=== PATIENT | male | born 1960 | race Caucasian/White ===

== ENCOUNTER 2018-01-30 13:51 | Emergency (ER) | payer OTHER ==
[2018-01-30] MEDS ORDERED: Dexamethasone 10 MG/ML VIAL ONE (14:25)
[2018-01-30] MEDS ORDERED: Famotidine 20 MG TAB ONE (14:25)
[2018-01-30] MEDS ORDERED: diphenhydrAMINE 25 MG CAP ONE (14:25)
== END 2018-01-30 15:28 | disposition home or self-care (01) ==
LOC: SCSER 13:51
DX: T63.441A Toxic effect of venom of bees, accidental (unintentional), initial encounter (principal); E78.1 Pure hyperglyceridemia; E78.5 Hyperlipidemia, unspecified; K21.9 Gastro-esophageal reflux disease without esophagitis; E11.9 Type 2 diabetes mellitus without complications; Z79.84 Long term (current) use of oral hypoglycemic drugs; Z79.899 Other long term (current) drug therapy; Z79.82 Long term (current) use of aspirin
CPT/HCPCS: 99284; J1100

== ENCOUNTER 2020-02-04 18:20 | Observation (INO) | payer OTHER ==
[2020-02-04] MEDS ORDERED: Nitroglycerin 2% Ointment 1 INCH/1 GM Packet ONE (18:58)
[2020-02-04 19:16] LABS: #Eosinphils 0.1 thou/uL (0.0-0.7); #Lymphocytes 2.2 thou/uL (1.20-3.40); #Monocytes 0.8 thou/uL (0.11-0.59); #Neutrophils 5.2 thou/uL (1.40-6.50); %Basophils 0.4 % (0.0-1.0); %Eosinophils 1.5 % (0.0-10.0); %Lymphocytes 26.2 % (21.0-51.0); Hemoglobin 16.3 g/dL (14.0-18.0); Mean Corpuscular HGB CONC 35.8 g/dL (32.0-36.0); Mean Corpuscular Hemoglobin 30.5 pg (27.0-31.0); Mean Corpuscular Volume 85.1 fL (78.0-98.0); Mean Platelet Volume 9.2 fL (7.4-10.4); Platelet Count 185 thou/uL (130-400); RBC Distribution Width 11.6 % (11.5-14.5); Red Blood Cell (RBC) Count 5.36 mill/uL (4.70-6.10); White Blood Cell (WBC) Count 8.4 thou/uL (4.8-10.8)
[2020-02-04 19:36] LABS: ALT (SGPT) 52 U/L (8-55); AST (SGOT) 31 U/L (5-34); Albumin 4.2 g/dL (3.5-5.0); Alkaline Phosphatase 42 U/L (40-110); BUN (Urea Nitrogen) 19 mg/dL (8.4-25.7); CK (CPK) 196 U/L (30-200); Calc. Creatinine Clearance 0 mL/min (70-130); Calcium 9.8 mg/dL (7.8-10.44); Globulin 2.9 g/dL (2.4-3.5); Glucose 249 mg/dL (70-105); Protein, Total 7.1 g/dL (6.0-8.3)
--- NOTE | 2020-02-04 19:36 | RAD ---
CHEST ONE VIEW PORTABLE: 02/04/20 HISTORY: Substernal chest pain. COMPARISON: 01/03/17. FINDINGS: Heart size is within normal limits. The lungs appear clear. No confluent pneumonia, overt edema, or p leural effusion. IMPRESSION: No significant acute intrathoracic disease. POS: RRE
[2020-02-04 19:45] LABS: Anion Gap 15 mmol/L (10-20); Carbon Dioxide 37 mmol/L (22-29); Chloride 92 mmol/L (98-107); Sodium 141 mmol/L (136-145)
[2020-02-04 19:51] LABS: Potassium 2.5 mmol/L (3.5-5.1)
[2020-02-04] MEDS ORDERED: Potassium Chloride 20 MEQ TAB ONE (20:21)
[2020-02-04 22:15] LABS: Troponin I 0.015 ng/mL (< 0.028)
[2020-02-05 00:13] VITALS: BMI 35.4
[2020-02-05] MEDS ORDERED: Acetaminophen 325 MG TAB PO PRN (01:01)
[2020-02-05] MEDS ORDERED: diphenhydrAMINE 25 MG CAP PO PRN (01:01)
[2020-02-05 01:14] LABS: Troponin I Less than 0.010 ng/mL (< 0.028)
[2020-02-05] MEDS ORDERED: Magnesium 2 GM/50 ML 2 GM in Sodium Chloride 0.9% 100 ML IVPB SCH (01:45)
[2020-02-05] MEDS ORDERED: Potassium Chloride 20 MEQ in Premix Bag 1 BAG IVPB SCH (01:45)
[2020-02-05] MEDS ORDERED: Magnesium 2 GM/50 ML 2 GM in Premix Bag 1 BAG IVPB SCH (02:15)
--- NOTE | 2020-02-05 02:18 | PDOC.HHP ---
Hospitalist HPI - History of Present Illness History of Present Illness: ADMISSION DATE: 02/05/2020 TIME OF ASSESSMENT: 0100 PRIMARY CARE PHYSICIAN: None CHIEF COMPLAINT: Chest pain HPI: This is a 52-year-old gentleman with a history of hypertension, hyperlipidemia, type 2 diabetes mellitus and morbid obesity who presents to the emergency department today with complaints of acute chest pain which started approximately 1:30 PM. States it was in the center of his chest described as a pressure and stabbing which he feels was a 7 out of 10 in terms of severity. Currently the pain is a 3 out of 10 in severity. Patient states that discomfort was nonradiating. He did not have any associated diaphoresis, nausea, vomiting, shortness of breath or dizziness. Denies any cough or hemoptysis. He has been afebrile and without any chills or sweats. All other review of systems are negative. States he has had similar pain in the past over 10 years ago and again 3 years ago at which time he had a stress test. Stress test was done in January 2017 and showed no evidence of ischemia. He was noted to have global hypokinesis with an EF of 49%. He was advised to follow-up with cardiology as an outpatient. Patient denies seeing a gamma operator or primary care physician following discharge. He also had an echo done during that admission which showed an EF of 50 to 55%. Mild MR present otherwise unremarkable. ED COURSE: In the emergency department he had an EKG done which showed normal sinus rhythm with a heart of 74. No ST changes or T wave abnormalities present. He did not receive aspirin because he took his usual dose of aspirin in the morning which was 325 mg. He had laboratory studies done which were notable for a low potassium of 2.5. Magnesium was 1.8. CK 196. BUN 19, creatinine 1.10, GFR 69. Glucose was 249. LFTs normal. Troponin negative x2. CBC unremarkable. Chest x-ray showed no significant acute intrathoracic disease. He was given Nitro-Bid 1 inch and received 40 mEq of potassium chloride p.o. PAST MEDICAL HISTORY: 1. Hyperlipidemia 2. Type 2 diabetes mellitus 3. Hypertension 4. GERD 5. Depression 6. Obesity 7. Sleep apnea uses CPAP PAST SURGICAL HISTORY: 1. Right hand surgery SOCIAL HISTORY: Patient reports rare alcohol consumption. Denies any tobacco use or drug use. He is fully independent at baseline. FAMILY HISTORY: Noncontributory ALLERGIES: 1. Novocain 2. Procaine CURRENT MEDICATIONS: 1. Aspirin 325 mg p.o. daily 2. Lisinopril/HCTZ space 20/25 mg p.o. twice daily 3. Rosuvastatin 10 mg p.o. daily 4. Glimepiride 1 mg p.o. twice daily 5. Metoprolol succinate 25 mg p.o. twice daily 6. Amlodipine 2.5 mg p.o. daily 7. Nasacort 55 mcg 2 sprays once daily Hospitalist ROS - Medication Medications: Active Medications Generic Name Dose Route Start Last Admin Trade Name Freq PRN Reason Stop Dose Admin Acetaminophen 650 mg 02/05/20 01:01 02/05/20 02:12 Acetaminophen 325 Mg Tab PO 650 mg Q4H PRN Administration Headache/Fever or Pain Diphenhydramine HCl 25 mg 02/05/20 01:01 02/05/20 02:12 Diphenhydramine 25 Mg Cap PO 25 mg HS PRN Administration Congestion Potassium Chloride 20 meq/ 100 mls @ 50 mls/hr 02/05/20 01:45 02/05/20 02:13 Device IVPB 02/05/20 03:00 100 mls NOW MAG Administration Magnesium Sulfate 2 gm/ Device 50 mls @ 50 mls/hr 02/05/20 02:15 02/05/20 02:17 IVPB 02/05/20 03:30 50 mls NOW MAG Administration - Exam General Appearance: NAD, awake alert General - other findings: VS: Temp 97.7, HR 78, RR 18, O2 sat 95% on room air, BP 118/69. Eye: PERRL ENT: normocephalic atraumatic, no oropharyngeal lesions ENT - other findings: CPAP in place Neck: supple, no lymphadenopathy Heart: RRR, no murmur, no rubs, normal peripheral pulses Respiratory: CTAB, no wheezes, no rales, no ronchi, normal chest expansion Gastrointestinal: soft, non-tender, non-distended, normal bowel sounds Extremities: no edema Skin: normal turgor, no lesions, no rashes Neurological: cranial nerve grossly intact, normal sensation to touch Musculoskeletal: normal tone, normal strength, no muscle wasting Psychiatric: normal affect, normal behavior, A&O x 3 Hospitalist Results - Labs Result Diagrams: 02/04/20 19:03 02/04/20 19:03 Lab results: WBC 8.4 thou/uL (4.8-10.8) 02/04/20 19:03 Hgb 16.3 g/dL (14.0-18.0) 02/04/20 19:03 Hct 45.6 % (42.0-52.0) 02/04/20 19:03 MCV 85.1 fL (78.0-98.0) 02/04/20 19:03 Plt Count 185 thou/uL (130-400) 02/04/20 19:03 Neutrophils % 62.0 % (42.0-75.0) 02/04/20 19:03 Sodium 141 mmol/L (136-145) 02/04/20 19:03 Potassium 2.5 mmol/L (3.5-5.1) L* 02/04/20 19:03 Chloride 92 mmol/L (98-107) L 02/04/20 19:03 Carbon Dioxide 37 mmol/L (22-29) H 02/04/20 19:03 BUN 19 mg/dL (8.4-25.7) 02/04/20 19:03 Creatinine 1.10 mg/dL (0.7-1.3) 02/04/20 19:03 Glucose 249 mg/dL (70-105) H 02/04/20 19:03 Calcium 9.8 mg/dL (7.8-10.44) 02/04/20 19:03 Total Bilirubin 1.0 mg/dL (0.2-1.2) 02/04/20 19:03 AST 31 U/L (5-34) 02/04/20 19:03 ALT 52 U/L (8-55) 02/04/20 19:03 Alkaline Phosphatase 42 U/L (40-110) 02/04/20 19:03 Creatine Kinase 196 U/L (30-200) 02/04/20 19:03 Troponin I Less than 0.010 ng/mL (< 0.028) 02/05/20 00:26 Serum Total Protein 7.1 g/dL (6.0-8.3) 02/04/20 19:03 Albumin 4.2 g/dL (3.5-5.0) 02/04/20 19:03 - Radiology Interpretation Chest x-ray Status: report reviewed by me Hospitalist H&P A/P - Problem (1) Chest pain Code(s): R07.9 - CHEST PAIN, UNSPECIFIED Status: Acute Assessment and Plan: Continue cardiac monitoring Resume ASA and statin Continue to trend troponin Keep NPO Cardiology consult in AM Hold stress test, per patient request Check lipid panel with AM labs Check Mg+, BNP and TSH (2) Hypokalemia Code(s): E87.6 - HYPOKALEMIA Status: Acute Assessment and Plan: Replace potassium Repeat electrolytes including Mg + with AM labs Mg replacement given as well for Mg of 1.8 Monitor and replace as needed (3) Obesity Code(s): E66.9 - OBESITY, UNSPECIFIED Status: Chronic (4) Sleep apnea Code(s): G47.30 - SLEEP APNEA, UNSPECIFIED Status: Chronic Assessment and Plan: CPAP HS (5) Diabetes mellitus Code(s): E11.9 - TYPE 2 DIABETES MELLITUS WITHOUT COMPLICATIONS Status: Chronic Assessment and Plan: Accuchecks ACHS ISS initiated (6) HTN (hypertension) Code(s): I10 - ESSENTIAL (PRIMARY) HYPERTENSION Status: Acute (7) Hyperlipidemia Code(s): E78.5 - HYPERLIPIDEMIA, UNSPECIFIED Status: Chronic Assessment and Plan: Resume statin Check lipid panel with AM labs - Plan Plan: GI Prophylaxis with Famotidine DVT Prophylaxis with mechanical SCDs. (Patient ambulatory) CODE STATUS FULL Case discussed with attending who agrees with plan as above.
[2020-02-05] MEDS ORDERED: Nitroglycerin 0.4 MG TAB (25 Tab Bottle) SL PRN (02:21)
[2020-02-05] MEDS ORDERED: Dextrose 50% Abboject 50 ML SYRINGE SLOW IVP PRN ×2 (02:21→15:34)
[2020-02-05] MEDS ORDERED: Dextrose 5% in Water 1,000 ML IV PRN ×2 (02:21→15:34)
[2020-02-05] MEDS ORDERED: HumaLOG 300 UNITS/3 ML VIAL SC PRN ×2 (02:21)
[2020-02-05] MEDS ORDERED: Aspirin 325 MG TAB PO SCH (02:45)
[2020-02-05] MEDS ORDERED: Potassium Chloride 20 MEQ TAB PO SCH ×4 (03:00→15:45)
[2020-02-05 04:21] LABS: #Basophils 0.1 thou/uL (0.0-0.2); #Eosinphils 0.2 thou/uL (0.0-0.7); #Monocytes 0.7 thou/uL (0.11-0.59); #Neutrophils 3.8 thou/uL (1.40-6.50); %Basophils 0.8 % (0.0-1.0); %Eosinophils 2.6 % (0.0-10.0); %Lymphocytes 29.7 % (21.0-51.0); %Monocytes 10.2 % (0.0-10.0); %Neutrophils 56.7 % (42.0-75.0); Hemoglobin 14.8 g/dL (14.0-18.0); Mean Corpuscular HGB CONC 35.7 g/dL (32.0-36.0); Mean Corpuscular Hemoglobin 30.5 pg (27.0-31.0); Mean Corpuscular Volume 85.3 fL (78.0-98.0); Mean Platelet Volume 9.1 fL (7.4-10.4); Platelet Count 167 thou/uL (130-400); RBC Distribution Width 11.5 % (11.5-14.5); Red Blood Cell (RBC) Count 4.87 mill/uL (4.70-6.10); White Blood Cell (WBC) Count 6.7 thou/uL (4.8-10.8)
[2020-02-05 04:48] LABS: Anion Gap 14 mmol/L (10-20); BUN (Urea Nitrogen) 20 mg/dL (8.4-25.7); Calc. Creatinine Clearance 128 mL/min (70-130); Calcium 9.1 mg/dL (7.8-10.44); Carbon Dioxide 35 mmol/L (22-29); Chloride 94 mmol/L (98-107); Glucose 353 mg/dL (70-105); Magnesium 2.2 mg/dL (1.6-2.6); Sodium 140 mmol/L (136-145)
[2020-02-05 04:51] LABS: Potassium 2.5 mmol/L (3.5-5.1)
[2020-02-05 06:42] LABS: SARS-CoV-2 MS2 Positive; SARS-CoV-2 N Gene Negative; SARS-CoV-2 S Gene Negative; SARS-CoV-2 by NAA Not Detected (NotDetected); SARS-CoV-2 orf1ab Negative
[2020-02-05] MEDS: Famotidine 20 MG TAB PO SCH ×2 (08:53→20:39)
[2020-02-05] MEDS: Aspirin 325 mg Enteric Coated Tablet PO SCH (08:53)
[2020-02-05] MEDS ORDERED: FLU VACC QS2020-21(6MOS UP)/PF 60 MCG/0.5 ML SYRINGE IM ONE (09:00)
--- NOTE | 2020-02-05 12:36 | CON ---
DATE OF CONSULTATION: HISTORY OF PRESENT ILLNESS: The patient is a 60-year-old gentleman who presents with chest discomfort. The patient was seen initially in 2014 with chest pain. He underwent a Cardiolite stress test and was found to have normal left ventricular ejection fraction of 49% with no evidence of ischemia. The patient underwent an echocardiogram which revealed normal left ventricular ejection fraction of 50% to 55%. The patient has had no further chest discomfort until the day of admission. The patient states that he developed midsternal chest discomfort. It did not radiate. It was not associated with shortness of breath or diaphoresis. The patient states it lasted for approximately three hours. He came to the emergency room and he still reports feeling some discomfort along his sternum. The patient denies having any PND or orthopnea. PAST MEDICAL HISTORY: 1. Diabetes mellitus. 2. Hypertension. 3. Dyslipidemia. PAST SURGICAL HISTORY: SOCIAL HISTORY: Nonsmoker. FAMILY HISTORY: He is adopted. ALLERGIES: PROCAINE. REVIEW OF SYSTEMS: Ten-point system otherwise unremarkable. PHYSICAL EXAMINATION: GENERAL: This is an obese gentleman, in no acute distress. VITAL SIGNS: Blood pressure 122/79. NECK: No jugular venous distention. LUNGS: Clear to auscultation. HEART: Regular rate and rhythm. Normal S1, S2. No murmurs. ABDOMEN: Distended. EXTREMITIES: Showed no edema. VASCULAR: Radial pulses are 2+. LABORATORY RESULTS: White blood cell count 6.7, hemoglobin 14.8, hematocrit 41.5, and platelets 167. Sodium is 140, potassium is 2.5, chloride 94, bicarbonate 35, BUN 20, creatinine 1.15, and glucose is 353. Troponin level was less than 0.01. BNP less than 10. EKG Normal sinus rhythm with a normal ECG. IMPRESSION: 1. Chest pain. 2. Hypertension. 3. Dyslipidemia. 4. Morbid obesity. 5. Hypokalemia. This gentleman presents with chest pain. The patient should not be on any type of diuretic with his low potassium. From a cardiac standpoint, his EKG is unremarkable. Cardiac enzymes revealed no evidence of myocardial infarction. We will proceed with stress testing for further evaluation. Job ID: [id number] MTDD
--- NOTE | 2020-02-05 12:44 | PDOC.HOSPP ---
- Subjective Encounter Date: 02/05/20 Encounter Time: 09:50 Subjective: Patient denies any chest pain however has some chest soreness. Tropes x2 -. TSH in the normal range. Glucose is quite high. - Objective Vital Signs & Weight: Vital Signs (12 hours) Temp Pulse Resp BP BP Pulse Ox 02/05/20 11:56 97.3 F L 73 16 144/80 H 02/05/20 08:02 97 02/05/20 08:00 97.4 F L 85 16 122/79 95 02/05/20 03:14 97.5 F L 69 16 115/60 97 02/05/20 02:22 96 Weight Weight 284 lb I&O: 02/04/20 02/05/20 02/06/20 06:59 06:59 06:59 Intake Total 360 Balance 360 Result Diagrams: 02/05/20 03:53 02/05/20 03:53 Additional Labs: Accuchecks 02/05/20 02/05/20 10:43 05:30 POC Glucose 277 H 308 H Hospitalist ROS - Medication Medications: Active Medications Generic Name Dose Route Start Last Admin Trade Name Freq PRN Reason Stop Dose Admin Acetaminophen 650 mg 02/05/20 01:01 02/05/20 02:12 Acetaminophen 325 Mg Tab PO 650 mg Q4H PRN Administration Headache/Fever or Pain Aspirin 325 mg 02/05/20 09:00 02/05/20 08:53 Aspirin 325 Mg Enteric Coated Tablet PO 325 mg DAILY MAG Administration Diphenhydramine HCl 25 mg 02/05/20 01:01 02/05/20 02:12 Diphenhydramine 25 Mg Cap PO 25 mg HS PRN Administration Congestion Famotidine 20 mg 02/05/20 09:00 02/05/20 08:53 Famotidine 20 Mg Tab PO 20 mg BID MAG Administration Insulin Human Lispro 0 units 02/05/20 02:21 02/05/20 05:33 Humalog 300 Units/3 Ml Vial SC 5 unit .MILD SLIDING SCALE PRN Administration Mild Correctional Scale Potassium Chloride 40 meq 02/05/20 10:15 02/05/20 10:59 Potassium Chloride 20 Meq Tab PO 02/05/20 14:00 40 meq NOW MAG Administration Sodium Chloride 10 ml 02/05/20 02:18 02/05/20 08:54 Flush - Normal Saline 10 Ml Syringe IVF 10 ml Q12HR PRN Administration Saline Flush - Exam General Appearance: NAD, awake alert Eye: PERRL, anicteric sclera ENT: normocephalic atraumatic Neck: supple Heart: RRR Respiratory: CTAB Gastrointestinal: soft, normal bowel sounds Neurological: no new deficit Psychiatric: A&O x 3 Hosp A/P - Plan Code(s): R07.9 - CHEST PAIN, UNSPECIFIED Status: Acute -Tropes negative TSH normal range. We will get the fasting lipid panel. - On aspirin nitroglycerin as needed. Continue with the fenofibrate Crestor as well as Toprol. -Stress test scheduled for tomorrow. Appreciate the cardiology input. (2) Hypokalemia Code(s): E87.6 - HYPOKALEMIA Status: Acute -Avoid the diuretics free. Patient is on lisinopril as well as hydrochlorothiazide. Assessment and Plan: Replace potassium Repeat electrolytes including Mg + with AM labs Mg replacement given as well for Mg of 1.8 (3) Obesity Code(s): E66.9 - OBESITY, UNSPECIFIED Status: Chronic (4) Sleep apnea Code(s): G47.30 - SLEEP APNEA, UNSPECIFIED Status: Chronic Assessment and Plan: CPAP HS (5) Diabetes mellitus Code(s): E11.9 - TYPE 2 DIABETES MELLITUS WITHOUT COMPLICATIONS Status: Chronic Assessment and Plan: Accucheckkathleen STOCK ISS initiated Patient on glimepiride which we will continue (6) HTN (hypertension) Code(s): I10 - ESSENTIAL (PRIMARY) HYPERTENSION Status: Acute (7) Hyperlipidemia Code(s): E78.5 - HYPERLIPIDEMIA, UNSPECIFIED Status: Chronic Assessment and Plan: Resume statin Check lipid panel with AM labs
[2020-02-05 15:20] LABS: Critical Call Chemistry 2NO.EMM; Potassium 2.9 mmol/L (3.5-5.1)
[2020-02-05] MEDS: Glimepiride 4 MG TAB PO SCH ×2 (17:03→17:10)
[2020-02-05] MEDS: HumaLOG 300 UNITS/3 ML VIAL SC SCH ×2 (17:13→20:45)
[2020-02-05] MEDS ORDERED: Glimepiride 1 MG TAB PO SCH (19:15)
[2020-02-05] MEDS ORDERED: Glimepiride 4 MG TAB PO SCH (19:30)
[2020-02-05] MEDS ORDERED: Rosuvastatin 20 MG TAB PO SCH (21:00)
[2020-02-05] MEDS ORDERED: Fluticasone Propionate Nasal Spray 16 gm Bottle NASAL SCH (21:00)
[2020-02-05] MEDS ORDERED: Fenofibrate Nanocrystallized 145 MG TAB PO SCH (21:00)
[2020-02-05] MEDS ORDERED: Amlodipine 5 MG TAB PO SCH (21:00)
[2020-02-05] MEDS: Lisinopril/Hydrochlorothiazide 20/25 mg Tablet PO SCH (21:27)
[2020-02-06 04:50] LABS: Cardiac Risk 4.5 (Less than 4.5)
[2020-02-06] MEDS: HumaLOG 300 UNITS/3 ML VIAL SC SCH ×2 (05:49→12:45)
[2020-02-06] MEDS ORDERED: Glimepiride 4 MG TAB PO SCH (07:30)
[2020-02-06] MEDS ORDERED: Fenofibrate Nanocrystallized 145 MG TAB PO SCH (09:00)
[2020-02-06] MEDS ORDERED: Multivit, Therapeutic 1 TAB PO SCH (09:00)
[2020-02-06] MEDS: Lisinopril/Hydrochlorothiazide 20/25 mg Tablet PO SCH (09:29)
[2020-02-06] MEDS: Aspirin 325 mg Enteric Coated Tablet PO SCH (09:29)
[2020-02-06] MEDS: Famotidine 20 MG TAB PO SCH (09:29)
[2020-02-06 11:14] LABS: Anion Gap 17 mmol/L (10-20); BUN (Urea Nitrogen) 11 mg/dL (8.4-25.7); Calc. Creatinine Clearance 135 mL/min (70-130); Calcium 8.6 mg/dL (7.8-10.44); Carbon Dioxide 24 mmol/L (22-29); Chloride 101 mmol/L (98-107); Glucose 304 mg/dL (70-105); Potassium 4.6 mmol/L (3.5-5.1); Sodium 137 mmol/L (136-145)
--- NOTE | 2020-02-06 12:46 | NM ---
MYOCARDIAL PERFUSION SCAN: INDICATION: Chest pain. TECHNIQUE: The patient was given 27 mCi of sestamibi for rest exam and 29 mCi for rest exam. The patient was st ressed according to Lorenzo protocol. The left ventricle was imaged with SPECT imaging. CT attenuation. FINDINGS: Normal activity throughout the left ventricle on stress and rest images. No evidence of reversible i schemia. Wall motion appears normal. Ejection fraction recorded at 52%. IMPRESSION: No evidence of reversible ischemia. POS: AGW
--- NOTE | 2020-02-06 13:28 | PDOC.HOSPP ---
- Subjective Encounter Date: 02/06/20 Encounter Time: 10:30 Subjective: Patient returned from the stress test. It appears he is completed. - Objective Vital Signs & Weight: Vital Signs (12 hours) Temp Pulse Resp BP BP BP Pulse Ox 02/06/20 12:00 97.4 F L 80 16 164/87 H 02/06/20 09:29 77 132/89 02/06/20 08:00 97.1 F L 78 18 132/89 97 02/06/20 07:49 96 02/06/20 04:53 96 02/06/20 03:19 97.8 F 73 16 133/80 96 Weight Weight 277 lb 14.4 oz I&O: 02/05/20 02/06/20 02/07/20 06:59 06:59 06:59 Intake Total 360 990 Balance 360 990 Result Diagrams: 02/05/20 03:53 02/06/20 10:38 Additional Labs: Accuchecks 02/06/20 02/06/20 02/05/20 12:16 05:32 20:35 POC Glucose 278 H 181 H 305 H 02/05/20 17:11 POC Glucose 286 H Hospitalist ROS - Medication Medications: Active Medications Generic Name Dose Route Start Last Admin Trade Name Freq PRN Reason Stop Dose Admin Acetaminophen 650 mg 02/05/20 01:01 02/05/20 02:12 Acetaminophen 325 Mg Tab PO 650 mg Q4H PRN Administration Headache/Fever or Pain Amlodipine Besylate 2.5 mg 02/05/20 21:00 02/05/20 20:39 Amlodipine 5 Mg Tab PO 2.5 mg HS MAG Administration Aspirin 325 mg 02/05/20 09:00 02/06/20 09:29 Aspirin 325 Mg Enteric Coated Tablet PO 325 mg DAILY MAG Administration Diphenhydramine HCl 25 mg 02/05/20 01:01 02/05/20 02:12 Diphenhydramine 25 Mg Cap PO 25 mg HS PRN Administration Congestion Famotidine 20 mg 02/05/20 09:00 02/06/20 09:29 Famotidine 20 Mg Tab PO 20 mg BID MAG Administration Fenofibrate 145 mg 02/05/20 21:00 02/05/20 21:27 Fenofibrate Nanocrystallized 145 Mg Tab PO 145 mg HS MAG Administration Glimepiride 4 mg 02/06/20 07:30 12/06/20 09:29 Glimepiride 4 Mg Tab PO 4 mg BID-AC MAG Administration Lisinopril/HCTZ 1 tab 02/05/20 21:00 02/06/20 09:29 Lisinopril/Hydrochlorothiazide 20/25 Mg Tablet PO 1 tab BID MAG Administration Insulin Human Lispro 0 units 02/05/20 15:45 02/06/20 12:45 Humalog 300 Units/3 Ml Vial SC 9 unit .AGGRESSIVE SLIDING MAG Administration Metoprolol Succinate 25 mg 02/05/20 21:00 02/06/20 09:29 Metoprolol Succinate Xl 25 Mg Tab PO 25 mg BID MAG Administration Multivitamins 1 tab 02/06/20 09:00 02/06/20 09:29 Multivit, Therapeutic 1 Tab PO 1 tab DAILY MAG Administration Rosuvastatin Calcium 10 mg 02/05/20 21:00 02/05/20 20:38 Rosuvastatin 20 Mg Tab PO 10 mg HS MAG Administration Sodium Chloride 10 ml 02/05/20 02:18 02/06/20 09:30 Flush - Normal Saline 10 Ml Syringe IVF 10 ml Q12HR PRN Administration Saline Flush Hosp A/P - Plan Code(s): R07.9 - CHEST PAIN, UNSPECIFIED Status: Acute -Tropes negative TSH normal range. We will get the fasting lipid panel. - On aspirin nitroglycerin as needed. Continue with the fenofibrate Crestor as well as Toprol. -Stress test scheduled for tomorrow. Appreciate the cardiology input. (2) Hypokalemia Code(s): E87.6 - HYPOKALEMIA Status: Acute -Avoid the diuretics free. Patient is on lisinopril as well as hydrochlorothiazide. Assessment and Plan: Replace potassium Repeat electrolytes including Mg + with AM labs Mg replacement given as well for Mg of 1.8 (3) Obesity Code(s): E66.9 - OBESITY, UNSPECIFIED Status: Chronic (4) Sleep apnea Code(s): G47.30 - SLEEP APNEA, UNSPECIFIED Status: Chronic Assessment and Plan: CPAP HS (5) Diabetes mellitus Code(s): E11.9 - TYPE 2 DIABETES MELLITUS WITHOUT COMPLICATIONS Status: Chronic Assessment and Plan: Accuchecks ACHS ISS initiated Patient on glimepiride which we will continue (6) HTN (hypertension) Code(s): I10 - ESSENTIAL (PRIMARY) HYPERTENSION Status: Acute (7) Hyperlipidemia Code(s): E78.5 - HYPERLIPIDEMIA, UNSPECIFIED Status: Chronic Assessment and Plan: Resume statin Check lipid panel with AM labs Pending stress test result if normal/negative possible discharge later this evening after cardiology clearance.
--- NOTE | 2020-02-06 14:52 | PDOC.DS.DS ---
Provider - Provider Date of Admission: 02/04/20 21:15 Admitting Provider: Chaparro Mariee DO Primary Care Physician: Unknown Course - Hospital Course Hospital Course: 40-year-old obese male presented with chest pain -Tropes negative TSH normal range. - On aspirin nitroglycerin as needed. Continue with the fenofibrate Crestor as well as Toprol. -Stress test negative for ischemia (2) Hypokalemia Code(s): E87.6 - HYPOKALEMIA Status: Acute -Avoid the diuretics free. Patient is on lisinopril as well as hydrochlorothiazide. -Discontinued hydrochlorothiazide and lisinopril dose increased and he needs repeat BMP panel in 1 week when he follows with primary care physician. Instructions given for the same. (3) Obesity Code(s): E66.9 - OBESITY, UNSPECIFIED Status: Chronic (4) Sleep apnea Code(s): G47.30 - SLEEP APNEA, UNSPECIFIED Status: Chronic Assessment and Plan: CPAP HS (5) Diabetes mellitus C Patient on glimepiride and needs more titration of his medications as outpatient (6) HTN (hypertension) Code(s): I10 - ESSENTIAL (PRIMARY) HYPERTENSION Status: Acute (7) Hyperlipidemia His triglyceride is 302 and the LDL is 46. He would benefit with the Vascepa which is prescribed for his hypertri glyceridemia, per cardiology recommendation in addition to being on Crestor. Repeat chemistry panel in 1 week as his lisinopril dose increased hydrochlorothiazide discontinued he had a significant hypokalemia at 2.5 on presentation and his potassium is normalized above 4 prior to discharge. Currently he does not need potassium supplementation until repeat labs reviewed. Cleared by cardiology. Follow-up with Dr. Goldstein in the clinic as needed. Follow with primary care physician in 1 week as he needs a repeat chemistry bus driver/monitor his potassium and creatinine. Charge time over 30 minutes Resuscitation Status: 02/05/20 02:18 Resuscitation Status Routine Co-Sign Provider: Resuscitation Status: FULL: Full Resuscitation - Labs Lab Results: 02/05/20 03:53 02/06/20 10:38 Abnormal Lab Results - Last 48 hrs 02/04/20 19:03: Potassium 2.5 L*, Chloride 92 L, Carbon Dioxide 37 H 02/04/20 19:03: Monocytes # 0.8 H 02/05/20 03:53: Potassium 2.5 L*, Chloride 94 L, Carbon Dioxide 35 H 02/05/20 03:53: Hct 41.5 L, Monocytes % 10.2 H, Monocytes # 0.7 H 02/05/20 14:39: Potassium 2.9 L* 02/06/20 03:58: Triglycerides 302 H - Physical Exam Vitals: Vital Signs (12 hours) Temp Pulse Resp BP BP BP Pulse Ox 02/06/20 12:00 97.4 F L 80 16 164/87 H 02/06/20 09:29 77 132/89 02/06/20 08:00 97.1 F L 78 18 132/89 97 02/06/20 07:49 96 02/06/20 04:53 96 02/06/20 03:19 97.8 F 73 16 133/80 96 Weight Weight 277 lb 14.4 oz Physical Exam: The patient was seen and examined on the day of discharge. Plan - Discharge Medications Prescriptions: Lisinopril [Prinivil] 40 mg PO DAILY 30 Days #30 tablet Icosapent Ethyl [Vascepa] 2 gm PO BID 30 Days #60 capsule Home Medications: Medication Instructions Recorded Confirmed Type Rosuvastatin [Crestor] 10 mg PO HS 01/03/17 02/04/20 History Amlodipine Besylate [amLODIPine 2.5 mg PO HS 02/04/20 02/04/20 History Besylate] Aspirin 325 mg PO DAILY 02/04/20 02/04/20 History Metoprolol Succinate [Toprol XL] 25 mg PO BID 02/04/20 02/04/20 History Multivitamin 1 each PO DAILY 02/04/20 02/04/20 History Triamcinolone Acetonide [Nasacort 2 spray EA NARE HS 02/04/20 02/04/20 History Allergy 24 HR] diphenhydrAMINE [Benadryl] 25 mg PO HS PRN 02/05/20 02/05/20 History Icosapent Ethyl [Vascepa] 2 gm PO BID 30 Days #60 capsule 02/06/20 Rx Lisinopril [Prinivil] 40 mg PO DAILY 30 Days #30 tablet 02/06/20 Rx Allergies: procaine [From Novocain] Allergy (Verified 02/04/20 23:52) HAPPENED 46 YEARS AGO. CAN'T REMEMBER WHAT HAPPNED - Discharge Instructions Discharge Instructions:: PCP in 1 week Repeat chemistry panel in 1 week as his lisinopril dose increased hydrochlorothiazide discontinued he had a hypokalemia on presentation and his potassium is normalized above 4 p rior to discharge. Currently he does not need potassium supplementation until repeat labs reviewed. Activity:: Activity as Tolerated Nourishment:: Heart Healthy Diet - Follow up Plan Referrals: Unknown,Unknown [Primary Care Provider] - Disposition: HOME Quality - Care Measures CORE MEASURES:: N/A
[2020-02-06 15:14] VITALS: BP 161/93; TEMP 99
[2020-02-06] MEDS ORDERED: Icosapent Ethyl 1 GM CAPSULE PO SCH (21:00)
== END 2020-02-06 17:06 | disposition home or self-care (01) ==
LOC: ERS 18:20 → 2NO 21:15
PROVIDERS: ADMIT Family Medicine; ATTEND Family Medicine
DX: R07.89 Other chest pain (principal); E87.6 Hypokalemia; G47.30 Sleep apnea, unspecified; E11.9 Type 2 diabetes mellitus without complications; I10 Essential (primary) hypertension; E78.5 Hyperlipidemia, unspecified; F32.9 Major depressive disorder, single episode, unspecified; K21.9 Gastro-esophageal reflux disease without esophagitis; E66.01 Morbid (severe) obesity due to excess calories; Z68.34 Body mass index [BMI] 34.0-34.9, adult; Z79.82 Long term (current) use of aspirin; Z79.84 Long term (current) use of oral hypoglycemic drugs; Z79.899 Other long term (current) drug therapy; Z88.4 Allergy status to anesthetic agent; Z20.828 Contact with and (suspected) exposure to other viral communicable diseases
CPT/HCPCS: 36415; 36416; 71045; 78452; 80048; 80053; 80061; 82550; 83735; 83880; 84443; 84484; 85025; 87635; 90471; 90662; 90732; 93005; 93017; 94760; 96374; A9500; G0008; G0009; G0378; J3475; J3480; Q0163; U0003

== ENCOUNTER 2022-01-15 11:01 | Emergency (ER) | payer BC ==
[2022-01-15 13:22] LABS: #Eosinphils 0.2 thou/uL (0.0-0.7); #Lymphocytes 1.8 thou/uL (1.20-3.40); #Monocytes 0.7 thou/uL (0.11-0.59); #Neutrophils 4.5 thou/uL (1.40-6.50); %Basophils 0.4 % (0.0-1.0); %Eosinophils 3.3 % (0.0-10.0); %Lymphocytes 24.9 % (21.0-51.0); %Monocytes 10.1 % (0.0-10.0); %Neutrophils 61.3 % (42.0-75.0); Hemoglobin 15.9 g/dL (14.0-18.0); Mean Corpuscular HGB CONC 35.1 g/dL (32.0-36.0); Mean Corpuscular Hemoglobin 30.8 pg (27.0-31.0); Mean Corpuscular Volume 87.5 fl (78.0-98.0); Mean Platelet Volume 8.7 fL (7.4-10.4); Platelet Count 175 10x3/uL (130-400); RBC Distribution Width 12.1 % (11.5-14.5); Red Blood Cell (RBC) Count 5.17 mill/uL (4.70-6.10); White Blood Cell (WBC) Count 7.3 10x3/uL (4.8-10.8)
[2022-01-15 13:49] LABS: ALT (SGPT) 31 U/L (8-55); AST (SGOT) 25 U/L (5-34); Albumin 4.2 g/dL (3.5-5.0); Alkaline Phosphatase 49 U/L (40-110); Anion Gap 13 mmol/L (10-20); BUN (Urea Nitrogen) 13 mg/dL (8.4-25.7); Bilirubin, Total 0.9 mg/dL (0.2-1.2); Calc. Creatinine Clearance 0 mL/min (70-130); Calcium 9.5 mg/dL (7.8-10.44); Carbon Dioxide 29 mmol/L (22-29); Chloride 102 mmol/L (98-107); Estimated GFR 99; Globulin 3.1 g/dL (2.4-3.5); Glucose 173 mg/dL (70-105); Lipase 10 U/L (8-78); Potassium 2.9 mmol/L (3.5-5.1); Protein, Total 7.3 g/dL (6.0-8.3); Sodium 141 mmol/L (136-145)
== END 2022-01-15 14:45 | disposition home or self-care (01) ==
LOC: ERS 11:01
DX: M54.6 Pain in thoracic spine (principal); E78.2 Mixed hyperlipidemia; E11.9 Type 2 diabetes mellitus without complications; I10 Essential (primary) hypertension; K21.9 Gastro-esophageal reflux disease without esophagitis; Z79.899 Other long term (current) drug therapy
CPT/HCPCS: 36415; 71045; 80053; 83690; 84484; 85025; 93005; 94760

== ENCOUNTER 2022-04-14 17:00 | Outpatient (CLI) | payer BC | END 2022-04-14 17:01 | disposition home or self-care (01) | LOC: SLEEPLAB 17:00 | PROVIDERS: ATTEND Family Medicine | DX: G47.33 Obstructive sleep apnea (adult) (pediatric) (principal); G47.10 Hypersomnia, unspecified; R53.83 Other fatigue; E66.9 Obesity, unspecified; R06.83 Snoring; Z68.36 Body mass index [BMI] 36.0-36.9, adult | CPT/HCPCS: 95811 ==

== ENCOUNTER 2023-05-19 | Outpatient (CLI) | payer BC | END 2023-05-19 07:51 | disposition home or self-care (01) | DX: I12.9 Hypertensive chronic kidney disease with stage 1 through stage 4 chronic kidney disease, or unspecified chronic kidney disease (principal); N18.2 Chronic kidney disease, stage 2 (mild) ==

== ENCOUNTER 2023-08-26 07:02 | Day surgery (SDC) | payer BC ==
[2023-08-25 13:47] VITALS: BMI 39.2
[2023-08-26] MEDS ORDERED: Bupivacaine PF 0.5% 30 ML VIAL ONE (09:30)
[2023-08-26] MEDS ORDERED: EPINEPHrine 1 MG/ML VIAL ONE (09:30)
[2023-08-26] MEDS ORDERED: Vancomycin 1 GM VIAL ONE (09:30)
[2023-08-26] MEDS ORDERED: Thrombin 5000 UNITS/5 ML VIAL ONE (09:30)
[2023-08-26] MEDS ORDERED: CEFAZOLIN 2 GM VIAL ONE (09:47)
[2023-08-26] MEDS ORDERED: Sodium Chloride 0.9% 100 ML ONE (09:47)
[2023-08-26] MEDS ORDERED: Fentanyl 250 MCG/5 ML VIAL ONE (09:48)
[2023-08-26] MEDS ORDERED: Lidocaine 1% PF 5 ML VIAL ONE (09:48)
[2023-08-26] MEDS ORDERED: PROPOFOL 20 ML ONE ×2 (09:48→10:10)
[2023-08-26] MEDS ORDERED: Rocuronium Bromide 10 MG/ML (10ML VIAL) ONE ×2 (09:48→11:59)
[2023-08-26 10:00] LABS: Anion Gap 16 mmol/L (10-20); BUN (Urea Nitrogen) 15 mg/dL (8.4-25.7); Calc. Creatinine Clearance 176 mL/min (70-130); Calcium 8.7 mg/dL (7.8-10.44); Carbon Dioxide 22 mmol/L (23-31); Estimated GFR 96; Glucose 110 mg/dL (80-115); Potassium 3.6 mmol/L (3.5-5.1)
[2023-08-26 10:03] LABS: Chloride 109 mmol/L (98-107); Sodium 143 mmol/L (136-145)
[2023-08-26] MEDS ORDERED: Acetaminophen 325 MG TAB PO PRN (10:12)
[2023-08-26] MEDS ORDERED: Ondansetron PF 4 MG/2 ML Vial IVP PRN (10:12)
[2023-08-26] MEDS ORDERED: HYDROcodone/Acetaminophen 7.5/325 mg Tablet PO PRN (10:12)
[2023-08-26] MEDS ORDERED: Acetaminophen/Codeine 30-300mg Tablet PO PRN (10:12)
[2023-08-26] MEDS ORDERED: Bisacodyl 10 MG SUPP PR PRN (10:12)
[2023-08-26] MEDS ORDERED: Mag-Al 1200 mg/1200 mg/30 ML UDCUP PO PRN (10:12)
[2023-08-26] MEDS ORDERED: HYDROcodone/Acetaminophen 10/325 mg Tablet PO PRN (10:12)
[2023-08-26] MEDS ORDERED: Morphine 2 MG/ML VIAL SLOW IVP PRN (10:12)
[2023-08-26] MEDS ORDERED: tiZANidine HCl 4 MG TAB PO PRN (10:14)
[2023-08-26] MEDS ORDERED: Sodium Chloride 0.9% 1,000 ML IV SCH (10:15)
[2023-08-26] MEDS ORDERED: SUGAMMADEX SODIUM 200 MG/2 ML VIAL ONE (12:24)
[2023-08-26] MEDS ORDERED: Ondansetron PF 4 MG/2 ML Vial ONE ×2 (12:24→13:40)
[2023-08-26] MEDS ORDERED: fentaNYL 50 mcg/mL 1 mL Vial ONE (13:40)
[2023-08-26] MEDS ORDERED: Promethazine HCl 25 MG/ML VIAL ONE ×2 (14:20→15:09)
[2023-08-27] MEDS ORDERED: Tamsulosin HCl 0.4 MG CAP PO SCH (06:00)
[2023-08-27] MEDS ORDERED: Pantoprazole DR 40 MG TAB PO SCH (09:00)
== END 2023-08-26 16:39 | disposition home or self-care (01) ==
LOC: SDC 07:02
PROVIDERS: ATTEND Neurological Surgery
PROC: 01NR0ZZ Release Sacral Nerve, Open Approach (ICD-10-PCS; principal; 2023-08-26)
PROC: 01NB0ZZ Release Lumbar Nerve, Open Approach (ICD-10-PCS; principal; 2023-08-26)
DX: M48.062 Spinal stenosis, lumbar region with neurogenic claudication (principal); E78.5 Hyperlipidemia, unspecified; I10 Essential (primary) hypertension; F32.A Depression, unspecified; E11.9 Type 2 diabetes mellitus without complications; Z79.82 Long term (current) use of aspirin; Z79.4 Long term (current) use of insulin; Z79.899 Other long term (current) drug therapy; Z88.4 Allergy status to anesthetic agent
CPT/HCPCS: 36416; 80048; J0171; J0665; J2405; J2550; J2704; J3010; J3370; J3490